=== PATIENT | female | born 1935 | race Caucasian/White ===

== ENCOUNTER → 2016-10-26 | Outpatient (CLI) | payer MEDICARE, OTHER ==
[~2016-10-26] MED LIST: ASA CHILDREN'S81 MG PO; AUGMENTIN875 MG PO; CALCIUM 600 +1 EACH PO; COREG DPS12.5 MG PO; COZAAR100 MG PO; DYAZIDE 37.5-21 EACH PO; FISH OIL 1,0001 EACH PO; LANTUS100 UNITS/ SQ; LORATADINE10 MG PO; LOTRISONE DPS45 GM TP; NORVASC2.5 MG PO; NOVOLOG100 UNIT/2 SQ; REQUIP0.5 MG PO; RESTORIL30 MG PO; SYNTHROID25 MCG PO; ULTRAM DPS50 MG PO; WELLBUTRIN SR150 MG PO
== END | disposition home or self-care (01) ==
LOC: RESC 08:39
DX: R06.02 Shortness of breath (principal)